=== PATIENT | female | born 1990 | race Caucasian/White ===

== ENCOUNTER 2017-01-28 16:22 | Emergency (ER) | payer SELFPAY ==
[~2017-01-28] VITALS: Ht 162.6 cm; Wt 79.5 kg
[2017-01-28 16:23] VITALS: BP 125/74; PULSE 102; RESP 20; TEMP 98.2; O2SAT 100
--- NOTE | 2017-01-28 17:16 | PD ---
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 She endorses a few days history of dysuria which she attributed to the soap she was using. States this is resolved on presentation. She also complains of current herpes outbreak. Last menstrual period 01/21/71. Patient denies fever, chills, abdominal pain, nausea, vomiting. She states that she has been incarcerated/[facility] rehabilitation for the last 3 months. Endorses unprotected sexual contact with a single male prior to that. Denies chronic health problems, takes no daily medications. NKDA. PFSH Past Medical History ?: Not Social History Tobacco Use: No Allergies-Medications (Allergen,Severity, Reaction): Coded Allergies: No Known Allergies (Unverified , 01/28/17) Reported Meds & Prescriptions Reported Meds & Active Scripts Active Valacyclovir (Valacyclovir HCl) 500 Mg Tab 500 Mg PO BID 3 Days Metronidazole 500 Mg Tab 500 Mg PO BID 7 Days Review of Systems Except as stated in HPI: all other systems reviewed are Neg Physical Exam Narrative GENERAL: Well-nourished, well-developed nontoxic appearing white female in no acute distress. SKIN: Focused skin assessment warm/dry. HEAD: Normocephalic. EYES: No scleral icterus. No injection or drainage. NECK: Supple, trachea midline. No JVD or lymphadenopathy. CARDIOVASCULAR: Regular rate and rhythm without murmurs, gallops, or rubs. RESPIRATORY: Breath sounds clear and equal bilaterally. No accessory muscle use. GASTROINTESTINAL: Abdomen soft, non-tender, nondistended. No suprapubic tenderness. Active bowel sounds GENITOURINARY: Normal external genitalia without lesions or erythema. Vaginal vault without blood. Moderate thin, pale yellow drainage. Cervical os was closed with 10 yellow drainage in the cervical os. No cervical motion tenderness. Uterus nontender and nonenlarged. Bilateral adnexa nontender without masses. MUSCULOSKELETAL: No cyanosis, or edema. BACK: Nontender without obvious deformity. No CVA tenderness. Data Data Last Documented VS Vital Signs Date Time Temp Pulse Resp B/P Pulse Ox O2 Delivery O2 Flow Rate FiO2 01/28/17 19:34 98.4 96 18 110/66 100 Room Air Orders Gc And Chlamydia Pcr (01/28/17 17:26) Wet Prep Profile (01/28/17 17:26) Urinalysis - C+S If Indicated (01/28/17 17:26) Ed Urine Pregnancytest Poc (01/28/17 17:26) Azithromycin Powd Pack (Zithromax Powd P (01/28/17 19:30) Ceftriaxone Inj (Rocephin Inj) (01/28/17 19:30) Lidocaine 1% Inj (50 Ml) (Xylocaine 1% I (01/28/17 19:30) Acetaminophen (Tylenol) (01/28/17 19:30) Labs Laboratory Tests Test 01/28/17 01/28/17 18:04 18:11 Urine Color YELLOW Urine Turbidity HAZY Urine pH 7.0 Urine Specific [place] 1.015 Urine Protein NEG mg/dL Urine Glucose (UA) NEG mg/dL Urine Ketones NEG mg/dL Urine Occult Blood NEG Urine Nitrite NEG Urine Bilirubin NEG Urine Urobilinogen LESS THAN 2.0 MG/DL Urine Leukocyte Esterase LARGE Urine RBC 3 /hpf Urine WBC 4 /hpf Urine Squamous Epithelial 3 /hpf Cells Urine Bacteria RARE /hpf Microscopic Urinalysis Comment CULT NOT INDICATED Clue Cells (Wet Prep) NONE SEEN Vaginal Trichomonas (Wet Prep) PRESENT Vaginal Yeast (Wet Prep) NONE SEEN MDM Medical Decision Making Medical Screen Exam Complete: Yes Emergency Medical Condition: Yes Differential Diagnosis UTI versus STI versus vesicovaginal fistula versus other Narrative Course 26 year old female with PMH of genital herpes presents to the ED for evaluation of "a few weeks" history of copious, thin, yellowish vaginal discharge. She endorses a few days history of dysuria which she attributed to the soap she was using. States this is resolved on presentation. She also complains of current herpes outbreak. Last menstrual period 01/21/71. Patient denies fever, chills, abdominal pain, nausea, vomiting. She states that she has been incarcerated/[facility] rehabilitation for the last 3 months. Endorses unprotected sexual contact with a single male prior to that. Vitals reviewed. Pulse 102 in triage and in the exam room. Physical exam reveals a nontoxic-appearing white female in no acute distress. Chest is CTAB, Abdomen soft, nontender, no suprapubic or CVA tenderness. Pelvic exam reveals thin yellow drainage in the vaginal vault and cervical os. No cervical motion tenderness. No adnexal tenderness. I see no definite herpetic lesions. No culture indicated of the UA. Wet prep positive for trichomoniasis. GC and chlamydia pending. Patient was treated empirically for GC and chlamydia with Rocephin and azithromycin. She is provided a prescription for metronidazole 500 mg twice a day 7 days and suppressive dose of valacyclovir 500 mg twice a day 3 days. She was instructed to take all medication as prescribed, treat all sexual partners, follow up with the health Department for test of cure, abstain from sexual activity until tested. She indicated understanding of the instructions and is agreeable to care plan. She is stable and discharged home. Diagnosis Primary Impression: Trichomoniasis Additional Impression: Recurrent genital herpes Referrals: Medicaid Analyst Patient Instructions: General Instructions, Genital Herpes Simplex (ED), Trichomoniasis (ED) Additional Instructions: Rest, hydrate. Take all medication as prescribed, even if symptoms resolve. Sexual partner should be treated. Follow-up with the health Department for test of cure. No sexual activity until test of cure resulted. Follow-up with the health department for complete STD screening and evaluation. Return to the ED for any urgent or emergent medical condition. Med/Other Pt SpecificInfo: Prescription(s) given Scripts Valacyclovir 500 Mg [id number] Mg PO BID 3 Days Ref 0 Prov:Kvng Turner MD 01/28/17 Metronidazole 500 Mg [id number] Mg PO BID 7 Days Ref 0 Prov:Kvng Turner MD 01/28/17 Disposition: 01 DISCHARGE HOME Condition: Stable Yari Moore Jan 28, 2017 17:16
[2017-01-28 18:31] LABS: BACTERIA, URINE RARE /hpf; BLOOD, URINE NEG (NEG); COMMENT (UR) CULT NOT INDICATED; CULTURE IF INDICATED CULT NOT INDICATED; GLUCOSE,URINE NEG (NEG); KETONE, URINE NEG (NEG); NITRITE,URINE NEG (NEG); SQUAMOUS EPITHELIAL CELL URINE 3 /hpf (0-5); URINE COLOR YELLOW (YELLW/STRAW)
[2017-01-28] MEDS ORDERED: ACETAMINOPHEN 500 MG CPLT PO ONE (19:30)
[2017-01-28] MEDS ORDERED: cefTRIAXone 250 MG VIAL IM ONE (19:30)
[2017-01-28] MEDS ORDERED: AZITHROMYCIN PWD FOR SUSP 1 GM PACKET PO ONE (19:30)
[2017-01-28] MEDS ORDERED: LIDOCAINE HCL 1% 50 ML VIAL IM ONE (19:30)
[2017-01-28 19:34] VITALS: BP 110/66; PULSE 96; RESP 18; TEMP 98.4; O2SAT 100
[2017-01-28] MEDS ORDERED: METR500T10 PO (19:45)
[2017-01-28] MEDS ORDERED: VALA500T PO (19:45)
[2017-01-28 22:40] LABS: CHLAMYDIA PCR NOT DETECTED (NOT DETECT); NEISSERIA PCR NOT DETECTED (NOT DETECT)
[2017-04-01] MEDS ORDERED: BACT800T5 PO (18:30)
== END 2017-01-28 20:22 | disposition home or self-care (01) ==
LOC: NEPE 16:22
DX: A59.9 Trichomoniasis, unspecified (principal); A60.00 Herpesviral infection of urogenital system, unspecified
CPT/HCPCS: 81001; 84703; 87210; 87491; 87591; 96372; 99283; J0696